=== PATIENT | male | born 1990 | race Caucasian/White ===

== ENCOUNTER 2018-06-30 15:44 | Outpatient (CLI) | payer BC ==
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
== END 2018-06-30 15:45 | disposition home or self-care (01) ==
LOC: TBSIIMAG 15:44
PROVIDERS: ATTEND Neurological Surgery
DX: I62.00 Nontraumatic subdural hemorrhage, unspecified (principal); I60.9 Nontraumatic subarachnoid hemorrhage, unspecified; S02.19XA Other fracture of base of skull, initial encounter for closed fracture
CPT/HCPCS: 70450